=== PATIENT | female | born 1970 | race Caucasian/White ===

== ENCOUNTER → 2018-10-17 | Outpatient (CLI) | payer OTHER ==
[~2018-10-17] MED LIST: ALBU.083IS IH; ALBU90OI INH; BUPR100ER PO; CEPH500 PO; IBUP800 PO; MEDR150I IM; MELO7.5 PO; NAPR500 PO; PROM25 PO; TRAM50 PO
[2018-10-24 07:21] LABS: HPV 16 Negative (Negative); HPV 18 Negative (Negative); HPV OTHER HR TYPES Positive (Negative)
== END ==
LOC: LAB UCHC 17:00 → LAB SHORT 17:00
PROVIDERS: Registered Nurse Community Health
DX: Z01.419 Encounter for gynecological examination (general) (routine) without abnormal findings (principal)
CPT/HCPCS: 87624; 87625; G0123

== ENCOUNTER → 2020-12-03 | Outpatient (CLI) | payer OTHER ==
[~2020-12-03] MED LIST changes: +AMPDEX10CR PO; +AMPDEX5; +BENMENLOZ MT; +DOCU100 PO; +DULCOLAX400 MG/5 M PO; +IBUP400 PO; +MELATONIN5 M1 PO; +Percocet 5-3251 EACH PO; +SENN187 PO; +SIME80CH PO
== END ==
LOC: LAB 12:13 → LAB SHORT 12:13
DX: N89.8 Other specified noninflammatory disorders of vagina (principal)
CPT/HCPCS: 87070; 87086; 87205

== ENCOUNTER 2021-05-20 09:33 | Day surgery (SDC) | payer OTHER ==
[~2021-05-20] VITALS: Ht 172.7 cm; Wt 88.2 kg
[~2021-05-20 09:33] MED LIST changes: +ALPR.25 PO; +AMPDEX5 PO; +HYDPAM25 PO
--- NOTE | 2021-05-20 10:56 | NUR ---
History, Chart, Medications and Allergies reviewed before start of procedure. Lungs clear T/O to Auscultation. Patient confirms NPO status and agrees with scheduled surgery. Pre-Op teaching done. Pt verbalizes understanding. Patient States Post-Procedure ride home has been arranged. Patient reports completing Chlorhexadine shower X2 prior to admission to hospital.
--- NOTE | 2021-05-20 15:04 | NUR ---
1455: pt arrived to PACU after partial mastectomy. pt aox4. complains of 4/10 throbbing pain at procedure site. pt tolerating pO fuids. insison sites CDI. report given by OR Team. pt resting in position of comfort. vss
--- NOTE | 2021-05-20 15:47 | NUR ---
Patient up to Ambulate independently. Gait steady. Discharge instructions reviewed with patient. Patient verbalizes understanding. Copy given to patient to take home. Dressing to procedure site clean, dry, intact with no visible drainage, swelling, erythema or bruising noted. Discharged via wheelchair [facility]
== END 2021-05-20 16:01 | disposition home or self-care (01) ==
LOC: ORSCMMR 09:33 → NM 10:30 → ORSCMMR 10:30
PROVIDERS: Surgery
PROC: 07B50ZX Excision of Right Axillary Lymphatic, Open Approach, Diagnostic (ICD-10-PCS; principal; 2021-05-20 11:30)
PROC: 0HBT0ZZ Excision of Right Breast, Open Approach (ICD-10-PCS; principal; 2021-05-20 11:30)
DX: C50.811 Malignant neoplasm of overlapping sites of right female breast (principal); C77.3 Secondary and unspecified malignant neoplasm of axilla and upper limb lymph nodes; F43.10 Post-traumatic stress disorder, unspecified; F90.9 Attention-deficit hyperactivity disorder, unspecified type; F41.8 Other specified anxiety disorders; Z79.899 Other long term (current) drug therapy
CPT/HCPCS: 38792; A9270; A9520; J0690; J1100; J1885; J2250; J2370; J2405; J2704; J3010; J7120; Q9968

== ENCOUNTER 2021-06-19 07:33 | Day surgery (SDC) | payer OTHER ==
[~2021-06-19] VITALS: Ht 172.7 cm; Wt 86.4 kg
[2021-06-19] MEDS ORDERED: HYDHCL25 PO (08:14)
== END 2021-06-19 10:49 | disposition home or self-care (01) ==
LOC: ORSCSDS 07:33
PROVIDERS: Surgery
PROC: 0HBT0ZZ Excision of Right Breast, Open Approach (ICD-10-PCS; principal; 2021-06-19 08:30)
DX: C50.811 Malignant neoplasm of overlapping sites of right female breast (principal); F90.9 Attention-deficit hyperactivity disorder, unspecified type; F41.8 Other specified anxiety disorders; E78.5 Hyperlipidemia, unspecified; Z86.16 Personal history of COVID-19; F43.10 Post-traumatic stress disorder, unspecified; Z79.899 Other long term (current) drug therapy; Z87.891 Personal history of nicotine dependence
CPT/HCPCS: 88307; J0690; J1100; J1885; J2250; J2405; J2704; J2765; J3010; J7120

== ENCOUNTER 2021-10-12 02:12 | Day surgery (SDC) | payer OTHER ==
[~2021-10-12 02:12] MED LIST changes: +HYDHCL25 PO
== END 2021-10-12 12:20 | disposition home or self-care (01) ==
LOC: ATC 02:12
DX: C50.311 Malignant neoplasm of lower-inner quadrant of right female breast (principal); E78.5 Hyperlipidemia, unspecified; F17.200 Nicotine dependence, unspecified, uncomplicated; Z79.899 Other long term (current) drug therapy
CPT/HCPCS: 36569; C1751

== ENCOUNTER 2021-10-21 09:06 | Day surgery (SDC) | payer OTHER ==
[2021-10-21 10:02] LABS: Hematocrit 35.9 % (33.0-51.0); Mean Corpuscular HGB Conc 33.4 g/dL (31.5-36.5); Mean Corpuscular Volume 93 fL (80-100); Mean Platelet Volume 10.7 fL (9.1-12.4); NRBC ABSOLUTE 0.13 K/mm3 (0.00-0.02); NRBC Auto 1.1 /100 WBC (0.0-0.2); Platelet Count 129 K/mm3 (150-400); RDW Coefficient Variation 13.2 % (11.7-14.2); RDW Standard Deviation 43.5 fL (35.1-46.3); Red Blood Cell Count 3.87 M/mm3 (3.80-5.20); White Blood Cell Count 11.76 K/mm3 (4.00-11.30)
[2021-10-21 10:26] LABS: Albumin, Blood 3.1 g/dL (3.4-5.0); Albumin/Globulin Ratio 0.9 (0.8-1.8); Bilirubin, Total 0.5 mg/dL (0.1-1.0); Calcium, Blood 9.3 mg/dL (8.5-10.1); Creatinine, Blood 0.55 mg/dL (0.40-1.00); Globulin, Blood 3.3 g/dL (2.2-4.0); Potassium, Blood 3.9 mmol/L (3.5-5.5); Total Protein, Blood 6.4 g/dL (6.4-8.2)
[2021-10-21 10:37] LABS: BAND PERCENT MAN 28 % (0-8); BASOPHILS ABSOLUTE MAN 0.11 K/mm3 (0.00-0.23); BASOPHILS PERCENT MAN 1 % (0-2); EOSINOPHILS ABSOLUTE MAN 0.47 K/mm3 (0.00-0.68); EOSINOPHILS PERCENT MAN 4 % (0-6); LYMPHOCYTES % ATYPICAL MANUAL 1 % (0-0); LYMPHOCYTES ABSOLUTE MAN 2.94 K/mm3 (0.84-5.20); LYMPHOCYTES PERCENT MAN 24 % (21-46); METAMYELOCYTE ABSOLUTE MAN 0.58 K/mm3 (0.00-0.00); METAMYELOCYTE PERCENT MAN 5 % (0-0); MONOCYTES ABSOLUTE MAN 1.99 K/mm3 (0.16-1.47); MONOCYTES PERCENT MAN 17 % (4-13); MYELOCYTE ABSOLUTE MAN 1.05 K/mm3 (0.00-0.00); MYELOCYTE PERCENT MAN 9 % (0-0); NEUTROPHILS ABSOLUTE MAN 4.58 K/mm3 (1.96-9.15); SEG NEUTROPHILS PERCENT MAN 11 % (41-73); TOTAL CELLS COUNTED 100
== END 2021-10-21 09:34 | disposition home or self-care (01) ==
LOC: ATC 09:06
PROVIDERS: Internal Medicine Hematology & Oncology
DX: C50.311 Malignant neoplasm of lower-inner quadrant of right female breast (principal); E78.5 Hyperlipidemia, unspecified; F17.200 Nicotine dependence, unspecified, uncomplicated; Z17.0 Estrogen receptor positive status [ER+]
CPT/HCPCS: 36592; 80053; 85025

== ENCOUNTER 2021-10-28 03:36 | Day surgery (SDC) | payer OTHER | END 2021-10-28 10:25 | disposition home or self-care (01) | LOC: ATC 03:36 | DX: Z45.2 Encounter for adjustment and management of vascular access device (principal); C50.311 Malignant neoplasm of lower-inner quadrant of right female breast; E78.5 Hyperlipidemia, unspecified | CPT/HCPCS: 99212 ==

== ENCOUNTER 2021-11-03 03:25 | Day surgery (SDC) | payer OTHER | END 2021-11-03 09:35 | disposition home or self-care (01) | LOC: ATC 03:25 | DX: C50.311 Malignant neoplasm of lower-inner quadrant of right female breast (principal); F17.200 Nicotine dependence, unspecified, uncomplicated | CPT/HCPCS: 99211 ==

== ENCOUNTER 2021-11-11 01:31 | Day surgery (SDC) | payer OTHER ==
[2021-11-11 10:46] LABS: Hematocrit 35.2 % (33.0-51.0); Hemoglobin 11.6 g/dL (11.5-16.0); Mean Corpuscular HGB 31.2 pg (26.0-34.0); Mean Corpuscular Volume 95 fL (80-100); Mean Platelet Volume 11.5 fL (9.1-12.4); NRBC ABSOLUTE 0.14 K/mm3 (0.00-0.02); NRBC Auto 2.2 /100 WBC (0.0-0.2); Platelet Count 93 K/mm3 (150-400); RDW Coefficient Variation 14.8 % (11.7-14.2); Red Blood Cell Count 3.72 M/mm3 (3.80-5.20); White Blood Cell Count 6.27 K/mm3 (4.00-11.30)
[2021-11-11 11:16] LABS: Albumin, Blood 3.4 g/dL (3.4-5.0); Bilirubin, Total 0.5 mg/dL (0.1-1.0); Bun/Creatinine Ratio 23.4 (12.0-20.0); Calcium, Blood 9.3 mg/dL (8.5-10.1); Creatinine, Blood 0.51 mg/dL (0.40-1.00); Globulin, Blood 3.4 g/dL (2.2-4.0); Total Protein, Blood 6.8 g/dL (6.4-8.2)
[2021-11-11 12:03] LABS: BAND PERCENT MAN 26 % (0-8); BASOPHILS PERCENT MAN 0 % (0-2); EOSINOPHILS ABSOLUTE MAN 0.06 K/mm3 (0.00-0.68); EOSINOPHILS PERCENT MAN 1 % (0-6); LYMPHOCYTES % ATYPICAL MANUAL 1 % (0-0); LYMPHOCYTES ABSOLUTE MAN 2.25 K/mm3 (0.84-5.20); LYMPHOCYTES PERCENT MAN 35 % (21-46); METAMYELOCYTE ABSOLUTE MAN 0.18 K/mm3 (0.00-0.00); METAMYELOCYTE PERCENT MAN 3 % (0-0); MONOCYTES ABSOLUTE MAN 1.25 K/mm3 (0.16-1.47); MONOCYTES PERCENT MAN 20 % (4-13); MYELOCYTE ABSOLUTE MAN 0.25 K/mm3 (0.00-0.00); MYELOCYTE PERCENT MAN 4 % (0-0); NEUTROPHILS ABSOLUTE MAN 2.19 K/mm3 (1.96-9.15); PROMYELOCYTE ABSOLUTE MAN 0.06 K/mm3 (0.00-0.00); PROMYELOCYTE PERCENT MAN 1 % (0-0); SEG NEUTROPHILS PERCENT MAN 9 % (41-73); TOTAL CELLS COUNTED 100
== END 2021-11-11 10:11 | disposition home or self-care (01) ==
LOC: ATC 01:31
PROVIDERS: Internal Medicine Hematology & Oncology
DX: C50.311 Malignant neoplasm of lower-inner quadrant of right female breast (principal); Z17.0 Estrogen receptor positive status [ER+]; E78.5 Hyperlipidemia, unspecified; F43.10 Post-traumatic stress disorder, unspecified; X58.XXXA Exposure to other specified factors, initial encounter; F90.9 Attention-deficit hyperactivity disorder, unspecified type
CPT/HCPCS: 36592; 80053; 85025

== ENCOUNTER 2021-11-18 09:39 | Day surgery (SDC) | payer OTHER | END 2021-11-18 09:56 | disposition home or self-care (01) | LOC: ATC 09:39 | DX: C50.311 Malignant neoplasm of lower-inner quadrant of right female breast (principal); Z87.891 Personal history of nicotine dependence | CPT/HCPCS: 99211 ==

== ENCOUNTER 2021-11-24 00:25 | Day surgery (SDC) | payer OTHER | END 2021-11-24 14:11 | disposition home or self-care (01) | LOC: ATC 00:25 | DX: C50.311 Malignant neoplasm of lower-inner quadrant of right female breast (principal); Z17.0 Estrogen receptor positive status [ER+]; F90.9 Attention-deficit hyperactivity disorder, unspecified type; F41.8 Other specified anxiety disorders; Z87.891 Personal history of nicotine dependence | CPT/HCPCS: 99211 ==

== ENCOUNTER 2021-12-01 00:30 | Day surgery (SDC) | payer OTHER ==
--- NOTE | 2021-12-01 15:10 | NUR ---
VITALS SIGNS DEFERRED TODAY. LABS DRAWN FROM PICC LINE PER HOSPITAL PROTOCOL
[2021-12-01 15:34] LABS: Hematocrit 31.3 % (33.0-51.0); Hemoglobin 10.1 g/dL (11.5-16.0); Mean Corpuscular HGB 31.5 pg (26.0-34.0); Mean Corpuscular HGB Conc 32.3 g/dL (31.5-36.5); Mean Corpuscular Volume 98 fL (80-100); RDW Coefficient Variation 15.9 % (11.7-14.2); RDW Standard Deviation 56.1 fL (35.1-46.3); Red Blood Cell Count 3.21 M/mm3 (3.80-5.20); White Blood Cell Count 2.47 K/mm3 (4.00-11.30)
[2021-12-01 15:46] LABS: Albumin, Blood 3.1 g/dL (3.4-5.0); Bilirubin, Total 0.5 mg/dL (0.1-1.0); Bun/Creatinine Ratio 18.6 (12.0-20.0); Calcium, Blood 9.2 mg/dL (8.5-10.1); Creatinine, Blood 0.54 mg/dL (0.40-1.00); Potassium, Blood 4.1 mmol/L (3.5-5.5); Total Protein, Blood 6.1 g/dL (6.4-8.2)
[2021-12-01 15:59] LABS: Platelet Count 69 K/mm3 (150-400)
[2021-12-01 17:59] LABS: BAND PERCENT MAN 19 % (0-8); BASOPHILS ABSOLUTE MAN 0.07 K/mm3 (0.00-0.23); BASOPHILS PERCENT MAN 3 % (0-2); EOSINOPHILS PERCENT MAN 0 % (0-6); LYMPHOCYTES % ATYPICAL MANUAL 5 % (0-0); LYMPHOCYTES ABSOLUTE MAN 1.03 K/mm3 (0.84-5.20); LYMPHOCYTES PERCENT MAN 37 % (21-46); MONOCYTES ABSOLUTE MAN 0.32 K/mm3 (0.16-1.47); MONOCYTES PERCENT MAN 13 % (4-13); MYELOCYTE ABSOLUTE MAN 0.02 K/mm3 (0.00-0.00); MYELOCYTE PERCENT MAN 1 % (0-0); NEUTROPHILS ABSOLUTE MAN 1.01 K/mm3 (1.96-9.15); SEG NEUTROPHILS PERCENT MAN 22 % (41-73); TOTAL CELLS COUNTED 100
== END 2021-12-01 14:18 | disposition home or self-care (01) ==
LOC: ATC 00:30
PROVIDERS: Internal Medicine Hematology & Oncology
DX: C50.311 Malignant neoplasm of lower-inner quadrant of right female breast (principal)
CPT/HCPCS: 36592; 80053; 85025; 99211

== ENCOUNTER 2021-12-03 10:51 | Day surgery (SDC) | payer OTHER | END 2021-12-03 13:55 | disposition home or self-care (01) | LOC: ATC 10:51 | DX: C50.311 Malignant neoplasm of lower-inner quadrant of right female breast (principal); E78.5 Hyperlipidemia, unspecified; Z87.891 Personal history of nicotine dependence; Z79.899 Other long term (current) drug therapy | CPT/HCPCS: 99211 ==

== ENCOUNTER → 2021-12-07 | Outpatient (CLI) | payer OTHER ==
[2021-12-07 11:11] LABS: Hematocrit 37.9 % (33.0-51.0); Hemoglobin 12.2 g/dL (11.5-16.0); Mean Corpuscular HGB 31.5 pg (26.0-34.0); Mean Corpuscular HGB Conc 32.2 g/dL (31.5-36.5); Mean Corpuscular Volume 98 fL (80-100); Mean Platelet Volume 10.3 fL (9.1-12.4); NRBC ABSOLUTE 0.05 K/mm3 (0.00-0.02); NRBC Auto 0.3 /100 WBC (0.0-0.2); Platelet Count 190 K/mm3 (150-400); RDW Standard Deviation 57.3 fL (35.1-46.3); Red Blood Cell Count 3.87 M/mm3 (3.80-5.20); White Blood Cell Count 19.17 K/mm3 (4.00-11.30)
[2021-12-07 11:33] LABS: BAND PERCENT MAN 9 % (0-8); BASOPHILS PERCENT MAN 0 % (0-2); EOSINOPHILS PERCENT MAN 0 % (0-6); LYMPHOCYTES ABSOLUTE MAN 1.91 K/mm3 (0.84-5.20); LYMPHOCYTES PERCENT MAN 10 % (21-46); METAMYELOCYTE ABSOLUTE MAN 0.19 K/mm3 (0.00-0.00); METAMYELOCYTE PERCENT MAN 1 % (0-0); MONOCYTES ABSOLUTE MAN 0.57 K/mm3 (0.16-1.47); MONOCYTES PERCENT MAN 3 % (4-13); NEUTROPHILS ABSOLUTE MAN 16.48 K/mm3 (1.96-9.15); SEG NEUTROPHILS PERCENT MAN 77 % (41-73); TOTAL CELLS COUNTED 100
== END | disposition home or self-care (01) ==
LOC: LAB 09:13 → LAB SHORT 09:13 → LAB FUT 10-22 14:35
PROVIDERS: Registered Nurse Oncology
DX: C50.311 Malignant neoplasm of lower-inner quadrant of right female breast (principal); E55.9 Vitamin D deficiency, unspecified
CPT/HCPCS: 36415; 82306; 85025

== ENCOUNTER → 2023-02-06 | Outpatient (CLI) | payer OTHER | END | disposition home or self-care (01) | LOC: LAB SHORT 14:25 → LAB 14:25 | DX: R30.0 Dysuria (principal) | CPT/HCPCS: 87086 ==

== ENCOUNTER → 2023-11-02 | Outpatient (CLI) | payer OTHER ==
[2023-11-02 14:29] LABS: BASOPHILS ABSOLUTE AUTO 0.02 K/mm3 (0.00-0.23); BASOPHILS PERCENT AUTO 0 % (0-2); EOSINOPHILS ABSOLUTE AUTO 0.09 K/mm3 (0.00-0.68); EOSINOPHILS PERCENT AUTO 1 % (0-6); Hematocrit 43.7 % (33.0-51.0); Hemoglobin 14.5 g/dL (11.5-16.0); IMMATURE GRAN ABSOLUTE AUTO 0.02 K/mm3 (0.00-0.10); IMMATURE GRAN PERCENT AUTO 0 % (0-1); LYMPHOCYTES ABSOLUTE AUTO 1.08 K/mm3 (0.84-5.20); LYMPHOCYTES PERCENT AUTO 17 % (21-46); MONOCYTES ABSOLUTE AUTO 0.35 K/mm3 (0.16-1.47); MONOCYTES PERCENT AUTO 6 % (4-13); Mean Corpuscular HGB Conc 33.2 g/dL (31.5-36.5); Mean Corpuscular Volume 93 fL (80-100); Mean Platelet Volume 9.5 fL (9.1-12.4); NEUTROPHILS ABSOLUTE AUTO 4.76 K/mm3 (1.96-9.15); NEUTROPHILS PERCENT AUTO 75 % (41-73); Platelet Count 283 K/mm3 (150-400); RDW Coefficient Variation 11.9 % (11.7-14.2); RDW Standard Deviation 40.8 fL (35.1-46.3); Red Blood Cell Count 4.68 M/mm3 (3.80-5.20); White Blood Cell Count 6.32 K/mm3 (4.00-11.30)
[2023-11-02 14:36] LABS: BASOPHILS ABSOLUTE AUTO 0.04 K/mm3 (0.00-0.23); BASOPHILS PERCENT AUTO 1 % (0-2); EOSINOPHILS PERCENT AUTO 2 % (0-6); Hematocrit 43.7 % (33.0-51.0); Hemoglobin 14.5 g/dL (11.5-16.0); IMMATURE GRAN ABSOLUTE AUTO 0.01 K/mm3 (0.00-0.10); IMMATURE GRAN PERCENT AUTO 0 % (0-1); LYMPHOCYTES ABSOLUTE AUTO 1.15 K/mm3 (0.84-5.20); LYMPHOCYTES PERCENT AUTO 18 % (21-46); MONOCYTES ABSOLUTE AUTO 0.34 K/mm3 (0.16-1.47); MONOCYTES PERCENT AUTO 5 % (4-13); Mean Corpuscular HGB Conc 33.2 g/dL (31.5-36.5); Mean Corpuscular Volume 94 fL (80-100); Mean Platelet Volume 9.7 fL (9.1-12.4); NEUTROPHILS ABSOLUTE AUTO 4.71 K/mm3 (1.96-9.15); NEUTROPHILS PERCENT AUTO 74 % (41-73); Platelet Count 276 K/mm3 (150-400); RDW Coefficient Variation 11.9 % (11.7-14.2); RDW Standard Deviation 41.2 fL (35.1-46.3); Red Blood Cell Count 4.67 M/mm3 (3.80-5.20); White Blood Cell Count 6.35 K/mm3 (4.00-11.30)
[2023-11-02 15:06] LABS: Alanine Aminotransfer (ALT/SGP 38 U/L (12-78); Albumin, Blood 3.8 g/dL (3.4-5.0); Alk Phos 93 U/L (50-136); Anion Gap 7 mmol/L (3-11); Aspartate Aminotrans (AST/SGOT 22 U/L (12-37); Bilirubin, Total 0.3 mg/dL (0.1-1.0); Blood Urea Nitrogen 8 mg/dL (8-24); CHOL/HDL RATIO 3.9; CO2, Blood 31 mmol/L (21-32); Calcium, Blood 9.2 mg/dL (8.5-10.1); Chloride, Blood 104 mmol/L (98-108); Cholesterol 275 mg/dL (50-200); Creatinine, Blood 0.67 mg/dL (0.40-1.00); Globulin, Blood 3.8 g/dL (2.2-4.0); Glomerular Filtration Rate 105 (60-); Glucose, Blood 108 mg/dL (70-99); HDL Cholesterol 70 mg/dL (>39); LDL/HDL RATIO 2.6; Low Density Lipoprotein Chol 179 mg/dL (0-110); Potassium, Blood 3.8 mmol/L (3.5-5.5); Sodium, Blood 138 mmol/L (136-145); Total Protein, Blood 7.6 g/dL (6.4-8.2); Triglycerides 132 mg/dL (30-160); Very Low Density Lipoprot Chol 26 mg/dL (6-32)
[2023-11-02 15:14] LABS: Albumin, Blood 3.8 g/dL (3.4-5.0); Bilirubin, Total 0.3 mg/dL (0.1-1.0); Bun/Creatinine Ratio 13.3 (12.0-20.0); Calcium, Blood 9.2 mg/dL (8.5-10.1); Creatinine, Blood 0.6 mg/dL (0.40-1.00); Follicle Stimulating Hormone 83.1 mIU/ml; Globulin, Blood 3.8 g/dL (2.2-4.0); Potassium, Blood 3.8 mmol/L (3.5-5.5); Total Protein, Blood 7.6 g/dL (6.4-8.2)
[2023-11-03 18:38] LABS: ESTRADIOL BY IMMUNOASSAY <20 pg/mL
== END | disposition home or self-care (01) ==
LOC: LAB SHORT 13:00 → LAB 13:00
PROVIDERS: Family Medicine; Internal Medicine
DX: C50.811 Malignant neoplasm of overlapping sites of right female breast (principal); E78.5 Hyperlipidemia, unspecified; F41.1 Generalized anxiety disorder
CPT/HCPCS: 36415; 80053; 80061; 82670; 83001; 83036; 85025

== ENCOUNTER → 2024-05-04 | Outpatient (CLI) | payer OTHER ==
[2024-05-04 16:48] LABS: Source, Urine Voided
[2024-05-04 17:37] LABS: Appearance, Urine Cloudy (Clear); Bilirubin, Urine Neg (Neg); Blood, Urine 2+ (Neg); Color, Urine Yellow (P-Yellow); Glucose Qualitative, Urine Neg (Neg); Ketones, Urine Neg (Neg); Leukocyte Esterase, Urine Neg (Neg); Nitrite, Urine Neg (Neg); Protein, Urine Neg (Neg); Specific Gravity, Urine 1.015 (1.003-1.022); Urobilinogen, Urine NORM (Normal)
[2024-05-04 17:43] LABS: White Blood Cells, Urine 0-2 /hpf (0-5)
[2024-05-04 17:44] LABS: Bacteria Few /hpf; Squamous Epithelial Cells Many /hpf (Few)
[2024-05-05 08:01] LABS: Bacterial Vaginosis PCR Negative (NEGATIVE); Candida Group, PCR NOT DETECTED (NOT DETECT); Candida glabrata-krusei, PCR NOT DETECTED (NOT DETECT)
== END | disposition home or self-care (01) ==
LOC: LAB SHORT 16:12
PROVIDERS: Student in an Organized Health Care Education/Training Program
DX: R30.0 Dysuria (principal)
CPT/HCPCS: 81001; 81515